=== PATIENT | male | born 1975 | race Caucasian/White ===

== ENCOUNTER 2017-11-01 12:38 | Emergency (ER) | payer OTHER ==
[~2017-11-01] VITALS: Ht 177.8 cm; Wt 77.1 kg
[2017-11-01] MEDS ORDERED: KETO10TA2 PO (18:48)
[2017-11-01] MEDS ORDERED: NORFLEX100MG PO (18:48)
== END 2017-11-01 18:52 | disposition home or self-care (01) ==
LOC: ER 12:38
DX: M54.5 Low back pain (principal)